=== PATIENT | male | born 1990 | race Caucasian/White ===

== ENCOUNTER 2022-05-15 16:50 | Emergency (ER) | payer BC, MEDICAID ==
[2022-05-15 17:44] VITALS: O2SAT 98
--- NOTE | 2022-05-15 17:47 | ERPHSYRPT ---
- History of Present Illness Time Seen by Provider: 05/15/22 17:43 Source: patient Exam Limitations: no limitations Physician History: Patient is a 31-year-old male who presents with a complaint of pain in the left foot. He states that he injured it 1 week ago and was seen at [facility] and underwent x-rays shortly after the injury. He says that the foot is continuing to get worse and he is unable to bear weight he arrives on crutches. His pain is located primarily in the arch of the left foot the ankle seems intact there are pulses and sensation in the left foot. Method of Injury: fell Occurred: last week Quality: aching, throbbing Severity of Pain-Max: moderate Severity of Pain-Current: moderate Lower Extremities Pain: foot: left (Ecchymoses on the plantar surface of the foot over the arch.) Modifying Factors: Improves With: movement Associated Symptoms: unable to bear weight, popping sensation Allergies/Adverse Reactions: No Known Drug Allergies Allergy (Verified 05/15/22 17:38) Home Medications: No Home Meds [No Home Meds] [facility] 07/14/15 [History] Hx Tetanus, Diphtheria Vaccination/Date Given: Yes Hx Influenza Vaccination/Date Given: No Hx Pneumococcal Vaccination/Date Given: No - Review of Systems Constitutional: No Fever, No Chills Eyes: No Symptoms Ears, Nose, & Throat: No Symptoms Respiratory: No Cough, No Dyspnea Cardiac: No Chest Pain, No Edema, No Syncope Abdominal/Gastrointestinal: No Abdominal Pain, No Nausea, No Vomiting, No Diarrhea Genitourinary Symptoms: No Dysuria Musculoskeletal: Fall, Injury, Joint Pain, No Back Pain, No Neck Pain Skin: No Rash Neurological: Gait Changes, No Dizziness, No Focal Weakness, No Sensory Changes Psychological: No Symptoms Endocrine: No Symptoms All Other Systems: Reviewed and Negative - Past Medical History Pertinent Past Medical History: Yes Neurological History: Seizures Other Medical History: last seizure--age 9 - Past Surgical History Past Surgical History: Yes Neuro Surgical History: No Pertinent History Cardiac: No Pertinent History Respiratory: No Pertinent History Gastrointestinal: No Pertinent History Genitourinary: No Pertinent History Musculoskeletal: Orthopedic Surgery Male Surgical History: No Pertinent History Other Surgical History: rt hand surgery and unknown eye surgery as a child - Social History Smoking Status: Current every day smoker Exposure to second hand smoke: No Drug Use: none Patient Lives Alone: No - Nursing Vital Signs Nursing Vital Signs: Initial Vital Signs Temperature 97.9 F 05/15/22 17:39 Pulse Rate 70 05/15/22 17:39 Respiratory Rate 18 05/15/22 17:39 Blood Pressure 106/63 05/15/22 17:39 O2 Sat by Pulse Oximetry 98 05/15/22 17:39 Pain Scale Pain Intensity 0 - Physical Exam General Appearance: mild distress, alert Eyes, Ears, Nose, Throat Exam: moist mucous membranes Neck Exam: non-tender, supple Cardiovascular/Respiratory Exam: chest non-tender, normal breath sounds, regular rate/rhythm, no respiratory distress Gastrointestinal/Abdominal Exam: non-tender, guarding Back Exam: normal inspection, No vertebral tenderness Hips Exam: bilateral: non-tender, normal inspection, normal range of motion, no evidence of injury Legs Exam: bilateral leg: non-tender, normal inspection, normal range of motion, no evidence of injury Knees Exam: bilateral knee: non-tender, normal inspection, normal range of motion, no evidence of injury Ankle Exam: bilateral ankle: non-tender, normal inspection, normal range of motion, no evidence of injury Foot Exam: left foot: bone tenderness, ecchymosis, limited range of motion, pain, soft tissue tenderness, swelling Neuro/Tendon Exam: normal sensation, normal motor functions Mental Status Exam: alert, oriented x 3, cooperative Skin Exam: normal color, warm, dry SpO2 Interpretation: normal O2 Delivery: Room Air - Course Nursing assessment & vital signs reviewed: Yes - Radiology Exams Left Foot X-ray Interpretation: Interpreted by me, Reviewed by me, Negative Ordered Tests: Active Orders 24 hr Category Date Time Status FOOT (MINIMUM 3 VIEWS) Stat Exams 05/15/22 17:28 Taken - Progress Progress: unchanged Progress Note: 05/15/22 18:31 Patient is a patient's x-rays did not show any fracture or dislocation we are going to wrap it back in the 80s put him on crutches give him some for pain and refer him to the Ortho clinic. - Departure Departure Disposition: Home Clinical Impression: Pain in left foot Condition: Stable Critical Care Time: No Referrals: DOCTOR,NO FAMILY [Primary Care Provider] - Follow up/PCP as directed Instructions: Foot Sprain (DC) Prescriptions: Hydrocodone/Acetaminophen [Hydrocodone-Acetamin 5-325 mg] 1 tab PO Q6HPRN PRN 3 Days #12 tablet MDD 4 PRN Reason: Pain
[2022-05-15 18:48] VITALS: BP 108/65; PULSE 65
--- NOTE | 2022-05-16 08:48 | XRAY ---
Indication: Pain and bruising following fall one week ago. Comparison: None 3 nonweightbearing views left foot obtained. No bony, articular, or soft tissue abnormalities.
== END 2022-05-15 19:02 | disposition home or self-care (01) ==
LOC: ED 16:50
DX: M79.672 Pain in left foot (principal); Z72.0 Tobacco use; Z79.891 Long term (current) use of opiate analgesic
CPT/HCPCS: 73630; 99283